=== PATIENT | male | born 1975 | race Caucasian/White ===

== ENCOUNTER 2020-03-13 22:10 | Inpatient (IN) ==
[2020-03-14] MEDS ORDERED: PROVENTIL NEB TX 0.083% 2.5MG/ 3ML NEB ONE (00:07)
[2020-03-14] MEDS ORDERED: DECADRON INJ PRESERVATIVE-FREE IVP ONE (00:07)
[2020-03-14] MEDS ORDERED: ZITHROMAX INJ 500 MG VIAL 500 MG in D5W 250 ML IV 250 ML IV SCH (00:08)
[2020-03-14] MEDS ORDERED: MOTRIN TAB 800 MG PO STA (00:09)
[2020-03-14] MEDS ORDERED: NS 1000 ML 1,000 ML IV ONE (00:09)
[2020-03-14] MEDS ORDERED: ZITHROMAX INJ 500 MG VIAL IV ONE (00:16)
[2020-03-14] MEDS ORDERED: NS 1000 ML 1,000 ML ONE (00:16)
[2020-03-14] MEDS ORDERED: DECADRON INJ ONE (00:16)
[2020-03-14] MEDS ORDERED: NS 250 ML IV 250 ML IV ONE (00:16)
[2020-03-14] MEDS ORDERED: PROVENTIL NEB TX 0.083% 2.5MG/ 3ML ONE (00:19)
[2020-03-14] MEDS ORDERED: MOTRIN TAB 800 MG PO ONE (00:20)
[2020-03-14] MEDS ORDERED: NS 100 ML IV 100 ML IV ONE (00:21)
--- NOTE | 2020-03-14 00:25 | DR.GENAD ---
HPI Time Seen Time Seen by Provider: 03/14/20 00:00 PCP Primary Care Physician: GIULIANO HPI Comment HPI Comment: Patient presents with worsening sob. Dx with COVID a few days ago and notes that his breathing is worse. patient is unable to complete full sentences without pausing. Complaint/Symptoms Chief Complaint:: PATIENT TESTED POSITIVE FOR COVID MONDAY AND HAS PROGRESSIVELY BECAME WORSE. PATIENT STARTED RUNNING A FEVER OF 101.1 THIS EVENING. PATIENT HAS BECAME VERY SHORT OF BREATH TODAY AND CANNOT TAKE A DEEP BREATH IN OR OUT. Self Treatment fo Chief Complaint: TOOK ANTIBIOTICS, ZPAK AND ALBUTERAL INHAULER AT HOME PRIOR TO COMING. Source History Provided: Patient Mode of Arrival Mode of Arrival: Ambulatory Timing Onset of Chief Complaint: 03/05/20 PMH PMH Past Medical History: Yes Past Medical History: Arthritis, Depression, GERD, Headaches, Hypertension and Sleep Apnea Past Medical History Comment: GASTRITIS, HIATAL HERNIA Past Surgical History: Yes Surgical History: Cholecystectomy Past Surgical History Comment: BACK SURGERY, SHOULDER SURGERY Family History History of Family Medical Conditions: Yes Family Medical History: Diabetes Mellitus, Cancer, [place], Coronary Artery Disease and Hypertension Social History Does patient currently use any type of tobacco product: Yes (DIP) Have you used tobacco products in the last 12 months: No Type of Tobacco Use: Smokeless How many years tobacco product used: 25 Does any household member use tobacco: No Alcohol Use: None Do you use any recreational Drugs:: No Lives With: Spouse Lives Where: Home Infectious screening In the last 2 months have you had wt loss of >10#?: NO Have you had fever, night sweats or hemotysis?: No Have you traveled outside the country in the last 6 months?: No Isolation: Standard ROS Review of Systems Constitutional: See HPI Respiratoy: Non-Productive Cough Cardiovascular: Chest Pain PE Vital Signs Vitals: Temperature 100.3 F Pulse Rate 85 Respiratory Rate 20 Blood Pressure 120/66 O2 Sat by Pulse Oximetry 95 General Limitations: No Limitations General Appearance: Alert and In Distress Head Head Exam: Normal Inspection, Atraumatic and Normocephalic Eyes Eye exam: Normal Appearance and EOMI ENT ENT Exam: Normal Exam Neck Neck Exam: Normal Inspection and Trachea Midline Chest Chest Inspection: Normal Inspection and Symmetric Chest Wall Rise Respiratory Respiratory Exam: Respiratory Distress Respiratory Exam: Bilateral: Rhonchi Cardiovascular Cardiovascular Exam: Regular Rate, Normal Rhythm and Normal Heart Sounds Abdominal Exam Abdominal Exam: Normal Inspection, Normal Bowel Sounds and Soft COURSE Treatment Treatment: Patient with unremarkable ED course. Notes some improvement. Sleeping at time of reassessment, I notices O2 sat 88% on room air. ROR Labs Reviewed Laboratory Results Reviewed?: Yes Result Diagrams: 03/14/20 00:21 03/14/20 00:21 Laboratory: WBC 3.9 X10^3/uL (3.6-10.0) 03/14/20 00: RBC 5.16 X10^6/uL (4.7-6.0) 03/14/20 00:21 Hgb 15.7 g/dL (13.5-18.0) 03/14/20 00: Hct 46.4 % (42.0-54.0) 03/14/20 00: MCV 89.9 fL (80.0-100.0) 03/14/20 00: MCH 30.4 pg (27.0-34.0) 03/14/20: MCHC 33.8 g/dL (33.0-35.0) 03/14/20 00: RDW 13.0 % (11.6-16.5) 03/14/20 00: Plt Count 128 X10^3/uL (150.0-450.0) L 03/14/20: Plt Count Comment Decreased (ADEQUATE) 03/14/20 00: MPV 9.6 fL (7.4-11.0) 03/14/20 00: Neut % (Auto) 74.1 % (42.0-75.0) 03/14/20 00: Lymph % (Auto) 14.1 % (21.0-51.0) L 03/14/20 00: [place] % (Auto) 11.3 % (0.0-13.0) 03/14/20: Eos % (Auto) 0.3 % (0.9-2.9) L 03/14/20 00: Baso % (Auto) 0.2 % (0.2-1.0) 03/14/20 00: Neut # (Auto) 2.9 x10^3/uL (2.2-4.8) 03/14/20 00:21 Lymph # (Auto) 0.5 X10^3/uL (1.3-2.9) L 03/14/20 00:21 [place] # (Auto) 0.4 x10^3/uL (0.3-0.8) 03/14/20 00:21 Eos # (Auto) 0.0 x10^3/uL (0.0-0.2) 03/14/20 00:21 Baso # (Auto) 0.0 X10^3/uL (0.0-0.1) 03/14/20 00:21 Absolute Nucleated RBC 0.2 /100WBC 03/14/20 00: Total Counted 100 03/14/20 00: Neutrophils % (Manual) 74 % (39-76) 03/14/20 00: Band Neutrophils % 5 % (0-10) 03/14/20 00:21 Lymphocytes % (Manual) 12 % (13-43) L 03/14/20 00: Monocytes % (Manual) 9 % (4-9) 03/14/20 00: Plt Morphology Comment Normal (NORMAL) 03/14/20 00: RBC Morphology Normal (NORMAL) 03/14/20 00: PT 12.1 SECONDS (11.8-14.3) 03/14/20 00:21 INR Target Range - 03/14/20 00 INR 0.92 (0.8-1.3) 03/14/20 00: APTT 30.7 SECONDS (22.9-36.5) 03/14/20 00: PTT Comment - 03/14/20 00: D-Dimer 0.56 ug/ml (0.0-0.57) 03/14/20 00:21 Sodium 136 mmol/L (136-145) 03/14/20 00:21 Corrected Sodium TNP 03/14/20 00:21 Potassium 3.5 mmol/L (3.5-5.1) 03/14/20 00: Chloride 99 mmol/L (98-107) 03/14/20 00: Carbon Dioxide 27.5 mmol/L (21-32) 03/14/20 00:21 BUN 10 mg/dL (7-18) 03/14/20 00:21 Creatinine 1.05 mg/dL (0.70-1.30) 03/14/20 00:21 Est GFR (MDRD) Af Amer > 60 (>60) 03/14/20 00:21 Est GFR (MDRD) Non-Af > 60 (>60) 03/14/20 00:21 Glucose 78 mg/dL (65-99) 03/14/20 00:21 Calcium 8.5 mg/dL (8.5-10.1) 03/14/20 00:21 Corrected Calcium 9.1 mg/dL (8.5-10.1) 03/14/20 00:21 Ferritin 152 ng/mL (26-388) 03/14/20 00:21 Total Bilirubin 0.30 mg/dL (0.2-1.0) 03/14/20 00:21 AST 50 Units/L (15-37) H 03/14/20 00:21 ALT 87 Units/L (12-78) H 03/14/20 00:21 Alkaline Phosphatase 70 Units/L (46-116) 03/14/20 00:21 C-Reactive Protein 13.90 mg/L (0-3.0) H 03/14/20 00:21 Total Protein 6.7 g/dL (6.4-8.2) 03/14/20 00:21 Albumin 3.2 g/dL (3.4-5.0) L 03/14/20 00:21 Globulin 3.5 g/dL (2.5-4.5) 03/14/20 00:21 Albumin/Globulin Ratio 0.9 Ratio (1.1-2.1) L 03/14/20 00:21 Influenza Type A (PCR) Negative (NEGATIVE) 03/14/20 01:38 Influenza Type B (PCR) Negative (NEGATIVE) 03/14/20 01:38 SARS CoV-2 RNA Rapid TRUNG Positive (NEGATIVE) A 03/14/20 01:38 Opioid Opioid Risk Tool Total: 0 Total Score Risk Category: Low Risk Copyright: Tyree MULLER predicting aberrant behaviors Diagnosis Discharge Problem: Pneumonia due to 2019 novel coronavirus
[2020-03-14 00:49] LABS: BASOPHILS % (AUTO) 0.2 % (0.2-1.0); EOSINOPHILS % (AUTO) 0.3 % (0.9-2.9); HEMATOCRIT 46.4 % (42.0-54.0); HEMOGLOBIN 15.7 g/dL (13.5-18.0); LYMPHOCYTES # (AUTO) 0.5 X10^3/uL (1.3-2.9); LYMPHOCYTES % (AUTO) 14.1 % (21.0-51.0); MEAN CORPUSCULAR HEMOGLOBIN 30.4 pg (27.0-34.0); MEAN CORPUSCULAR HGB CONC 33.8 g/dL (33.0-35.0); MEAN CORPUSCULAR VOLUME 89.9 fL (80.0-100.0); MEAN PLATELET VOLUME 9.6 fL (7.4-11.0); MONOCYTES # (AUTO) 0.4 x10^3/uL (0.3-0.8); MONOCYTES % (AUTO) 11.3 % (0.0-13.0); NEUTROPHILS # (AUTO) 2.9 x10^3/uL (2.2-4.8); NEUTROPHILS % (AUTO) 74.1 % (42.0-75.0); PLATELET COUNT 128 X10^3/uL (150.0-450.0); RED BLOOD COUNT 5.16 X10^6/uL (4.7-6.0); WHITE BLOOD COUNT 3.9 X10^3/uL (3.6-10.0)
[2020-03-14 00:54] LABS: ALANINE AMINOTRANSFERASE 87 Units/L (12-78); ALBUMIN 3.2 g/dL (3.4-5.0); ALKALINE PHOSPHATASE 70 Units/L (46-116); ASPARTATE AMINO TRANSFERASE 50 Units/L (15-37); BLOOD UREA NITROGEN 10 mg/dL (7-18); CALCIUM 8.5 mg/dL (8.5-10.1); CARBON DIOXIDE 27.5 mmol/L (21-32); CHLORIDE 99 mmol/L (98-107); COR CA(FOR HYPOALB) 9.1 mg/dL (8.5-10.1); CREATININE 1.05 mg/dL (0.70-1.30); SODIUM 136 mmol/L (136-145); TOTAL PROTEIN 6.7 g/dL (6.4-8.2); eGFR NON BLACK RACES > 60 (>60)
[2020-03-14 01:14] LABS: BAND NEUTROPHILS % 5 % (0-10); PLATELET MORPHOLOGY COMMENT NORMAL (NORMAL)
--- NOTE | 2020-03-14 01:53 | CT ---
HISTORYCOVID-19, HYPOXIASTUDYCTA CHESTCOMPARISONNoneTECHNIQUEMultiple axial images of the chest were obtained from the thoracic inlet to the upper abdomen after the administration of IV contrast. 3D reconstructions utilizing axial MIPS imaging was performed and reviewed. Dose reduction techniques including Automated Exposure Control (AEC) and adjustment of mA and kV were utilized.FINDINGSPulmonary arteries: There is no central filling defects of the pulmonary arterial system to suggest acute pulmonary emboli. Limited assessment of segmental and subsegmental pulmonary arteries due to motion degradation.Mediastinum: Mild mediastinal and hilar adenopathy. Heart size is within normal limits. No paricardial effusion The thoracic aorta is normal in its contour without evidence for aneurysmal dilatation.Lungs: Patchy peripheral and upper lobe predominant ground-glass opacities throughout. No pleural effusion or pneumothorax. The central airway is grossly patent.Chest wall: No axillary adenopathy.Bones: No aggressive osseus lesion or acute fracture.Upper abdomen: The visualized portions of the upper abdomen are grossly unremarkable.Status post cholecystectomy.IMPRESSIONNo evidence of acute pulmonary emboli.Limited assessment of segmental and subsegmental pulmonary arteries due to motion degradation.Patchy peripheral and upper lobe predominant ground-glass opacities throughout the lung bush, concerning for COVID-19 pneumonia.Mild mediastinal and hilar adenopathy, likely reactive.Status post cholecystectomy.Electronically signed by: Melany Hirsch (Mar 14, 2020 01:51:22)
[2020-03-14 04:11] LABS: BASOPHILS % (AUTO) 0.2 % (0.2-1.0); EOSINOPHILS % (AUTO) 0.1 % (0.9-2.9); HEMOGLOBIN 15.1 g/dL (13.5-18.0); LYMPHOCYTES # (AUTO) 0.4 X10^3/uL (1.3-2.9); LYMPHOCYTES % (AUTO) 8.9 % (21.0-51.0); MEAN CORPUSCULAR HEMOGLOBIN 30.4 pg (27.0-34.0); MEAN CORPUSCULAR HGB CONC 33.6 g/dL (33.0-35.0); MEAN CORPUSCULAR VOLUME 90.6 fL (80.0-100.0); MEAN PLATELET VOLUME 9.5 fL (7.4-11.0); MONOCYTES # (AUTO) 0.2 x10^3/uL (0.3-0.8); MONOCYTES % (AUTO) 4.9 % (0.0-13.0); NEUTROPHILS # (AUTO) 3.5 x10^3/uL (2.2-4.8); NEUTROPHILS % (AUTO) 85.9 % (42.0-75.0); PLATELET COUNT 118 X10^3/uL (150.0-450.0); RED BLOOD COUNT 4.96 X10^6/uL (4.7-6.0); RED CELL DISTRIBUTION WIDTH 12.9 % (11.6-16.5); WHITE BLOOD COUNT 4.1 X10^3/uL (3.6-10.0)
[2020-03-14 04:23] LABS: ALANINE AMINOTRANSFERASE 83 Units/L (12-78); ALBUMIN 3.1 g/dL (3.4-5.0); ALKALINE PHOSPHATASE 68 Units/L (46-116); ASPARTATE AMINO TRANSFERASE 35 Units/L (15-37); BLOOD UREA NITROGEN 10 mg/dL (7-18); CARBON DIOXIDE 26.7 mmol/L (21-32); CHLORIDE 102 mmol/L (98-107); COR CA(FOR HYPOALB) 8.7 mg/dL (8.5-10.1); COR NA(FOR HYPERGLY) 136 mmol/L (136-145); CREATININE 1.01 mg/dL (0.70-1.30); SODIUM 136 mmol/L (136-145); TOTAL PROTEIN 6.4 g/dL (6.4-8.2); TROPONIN I < 0.02 ng/mL (0-1.5); eGFR NON BLACK RACES > 60 (>60)
[2020-03-14] MEDS: NS 1000 ML 1,000 ML IV SCH (06:26)
[2020-03-14] MEDS ORDERED: FLEXERIL TAB 10 MG PO PRN (08:55)
[2020-03-14] MEDS ORDERED: ATIVAN TAB 1 MG PO PRN ×2 (08:55→10:32)
[2020-03-14] MEDS ORDERED: VITAMIN A PO SCH (09:00)
[2020-03-14] MEDS ORDERED: PREVACID PO SCH (09:00)
[2020-03-14] MEDS ORDERED: LOVENOX INJ 30 MG SYR SC SCH (09:00)
[2020-03-14] MEDS ORDERED: VITAMIN D (1.25MG) PO SCH (09:00)
[2020-03-14] MEDS: PULMICORT NEB TX 0.5 MG NEB SCH ×2 (09:25→21:00)
--- NOTE | 2020-03-14 10:37 | DR.H&P ---
H&P - History & Physical for Day of: H&P Date: 03/14/20 - Chief Complaint Chief Complaint: SOB, COVID 19 - History of Present Illness History of Present Illness: PATIENT TESTED POSITIVE FOR COVID MONDAY AND HAS PROGRESSIVELY BECAME WORSE. PATIENT STARTED RUNNING A FEVER OF 101.1 THIS EVENING. PATIENT HAS BECAME VERY SHORT OF BREATH TODAY AND CANNOT TAKE A DEEP BREATH IN OR OUT. PT HAD CTA IN ER REVEALING PNEUMONIA. PT ADMITTED FOR TREATME NT OF ACUTE RESP DISTRESS DUE TO COVID 19 PNEUMONIA - Past Medical History Past Medical History: Hypertension, Depression, GERD, Arthritis, Headaches, Sleep Apnea - Past Surgical History Surgical History: Tonsillectomy - Family History Family Medical History: Diabetes Mellitus, Cancer, Heart Failure - Social History Does patient currently use any type of tobacco product: Yes (DIP) Have you used tobacco products in the last 12 months: No Type of Tobacco Use: Smokeless How many years tobacco product used: 25 Does any household member use tobacco: No Alcohol Use: Occasionally Drug Use: None - Medications Home Medications: No Known Drug Allergies Allergy (Verified 03/14/20 03:49) CONTINUE taking the following medications cyanocobalamin (vitamin B-12) 1,000 mcg IM Q2M 03/14/20 [History] cyclobenzaprine 10 mg PO TID PRN 03/14/20 [History] desvenlafaxine succinate 100 mg PO DAILY 03/14/20 [History] dexlansoprazole [Dexilant] 60 mg PO DAILY 03/14/20 [History] lorazepam 1 mg PO BID PRN 03/14/20 [History] meloxicam 15 mg PO DAILY 03/14/20 [History] nebivolol [Bystolic] 10 mg PO DAILY 03/14/20 [History] phentermine 37.5 mg PO DAILY 03/14/20 [History] - Review of Systems Constitutional: Fever, Chills, Weakness Eyes: No Symptoms Reported ENT: No Symptoms Reported Respiratory: SOB with Excertion, Pleuritic Pain Cardiovascular: Palpitations Gastrointestinal: Nausea Genitourinary: No Symptoms Reported Skin: No Symptoms Reported Neurological: Weakness - Physical Exam Vital Signs: Temperature 97.7 F Pulse Rate [Apical] 72 Pulse Rate 79 Respiratory Rate 22 Blood Pressure [Left Arm] 117/73 Blood Pressure 108/52 O2 Sat by Pulse Oximetry 96 Oriented: Normal Eyes: Normal Ear: Normal Nose: Normal Throat: Normal Respiratory: Diminished Throughout Cardiovascular: Normal : Normal Auscultation: Bowel Sounds: Normal Palpation: Normal Tenderness: Normal Skin: Normal Musculoskeletal: Normal Psychiatric: Anxiety Affect: Anxious Speech Pattern: Clear, Appropriate - Assessment/Plan (1) Pneumonia due to 2019 novel coronavirus Status: Acute Plan: ADMIT, RESP THERAPY, SUPPLEMENTAL O2. BC AND SPUTUM ON ADMISSION. IV ATBX THERAPY, IV SOLU MEDROL PPI THERAPY. STRICT I&OS, REMDESIVIR, AM ABG AND CXR. AM LABS, VERIFY AND RESUME HOME ANTIHYPERTENSIVE MEDICATION (2) Hypertension Status: Acute - Allergies Allergies/Adverse Reactions: Allergies Allergy/AdvReac Type Severity Reaction Status Date / Time No Known Drug Allergies Allergy Verified 03/14/20 03:49
[2020-03-14] MEDS: REMDESIVIR 200 MG in NS 250 ML IV 250 ML IV SCH (10:41)
[2020-03-14] MEDS: ASCORBIC ACID INJ MULTI-DOSE VIAL 1,500 MG in NS 100 ML IV 100 ML IV SCH ×3 (10:42→20:22)
[2020-03-14] MEDS: ZINC SULFATE PO SCH ×2 (10:42→20:24)
[2020-03-14] MEDS: ZEBETA TAB 5 MG PO SCH (10:44)
[2020-03-14] MEDS: SOLU-Medrol 40 MG VIAL IVP SCH ×3 (10:45→21:08)
[2020-03-14] MEDS: TRICOR TAB 160 MG PO SCH (10:46)
[2020-03-14] MEDS: PROTONIX INJ 40 MG VIAL IVP SCH ×2 (10:46→20:23)
[2020-03-14] MEDS: PEPCID 20 MG IV PREMIX* 20 MG/50 ML BAG IV SCH (10:46)
[2020-03-14] MEDS: PATIENT'S HOME MEDICATION PO SCH (11:08)
[2020-03-14] MEDS: NEBIVOLOL 10 MG PO SCH (11:08)
[2020-03-14 11:17] LABS: ABG ALLEN TEST POS; ABG BASE EXCESS 4.2 mmol/L (-2.0-2.0); ABG HCO3 28.4 mmol/L (22-26)
[2020-03-14] MEDS: DUONEB 0.5 MG/3 MG (3 mL) NEB SCH ×2 (12:10→21:00)
[2020-03-14] MEDS: LOVENOX INJ 40 MG SYR SC SCH ×2 (12:27→20:22)
[2020-03-14] MEDS ORDERED: DUONEB 0.5 MG/3 MG (3 mL) NEB ONE (12:29)
[2020-03-14] MEDS ORDERED: ZOFRAN INJ 4 MG VIAL IVP PRN (20:47)
[2020-03-15] MEDS ORDERED: REMDESIVIR IV ONE (02:24)
[2020-03-15] MEDS ORDERED: NS 250 ML IV 250 ML IV ONE (02:25)
[2020-03-15] MEDS: ASCORBIC ACID INJ MULTI-DOSE VIAL 1,500 MG in NS 100 ML IV 100 ML IV SCH ×4 (02:35→20:32)
[2020-03-15] MEDS: ZITHROMAX INJ 500 MG VIAL 500 MG in D5W 250 ML IV 250 ML IV SCH (03:18)
[2020-03-15] MEDS: REMDESIVIR 200 MG in NS 250 ML IV 250 ML IV SCH (05:00)
[2020-03-15] MEDS: NS 1000 ML 1,000 ML IV SCH (05:20)
[2020-03-15] MEDS: SOLU-Medrol 40 MG VIAL IVP SCH ×3 (05:20→21:54)
[2020-03-15 05:37] LABS: BASOPHILS % (AUTO) 0.1 % (0.2-1.0); HEMATOCRIT 42.8 % (42.0-54.0); HEMOGLOBIN 14.6 g/dL (13.5-18.0); LYMPHOCYTES # (AUTO) 0.4 X10^3/uL (1.3-2.9); LYMPHOCYTES % (AUTO) 9.2 % (21.0-51.0); MEAN CORPUSCULAR HEMOGLOBIN 30.6 pg (27.0-34.0); MEAN CORPUSCULAR HGB CONC 34.1 g/dL (33.0-35.0); MEAN CORPUSCULAR VOLUME 89.8 fL (80.0-100.0); MEAN PLATELET VOLUME 9.3 fL (7.4-11.0); MONOCYTES # (AUTO) 0.2 x10^3/uL (0.3-0.8); MONOCYTES % (AUTO) 5.6 % (0.0-13.0); NEUTROPHILS # (AUTO) 3.7 x10^3/uL (2.2-4.8); NEUTROPHILS % (AUTO) 85.1 % (42.0-75.0); PLATELET COUNT 123 X10^3/uL (150.0-450.0); RED BLOOD COUNT 4.76 X10^6/uL (4.7-6.0); RED CELL DISTRIBUTION WIDTH 12.8 % (11.6-16.5); WHITE BLOOD COUNT 4.3 X10^3/uL (3.6-10.0)
[2020-03-15 05:55] LABS: ALANINE AMINOTRANSFERASE 74 Units/L (12-78); ALBUMIN 2.8 g/dL (3.4-5.0); ALKALINE PHOSPHATASE 65 Units/L (46-116); ASPARTATE AMINO TRANSFERASE 32 Units/L (15-37); BLOOD UREA NITROGEN 13 mg/dL (7-18); CALCIUM 8.6 mg/dL (8.5-10.1); CHLORIDE 102 mmol/L (98-107); COR CA(FOR HYPOALB) 9.6 mg/dL (8.5-10.1); COR NA(FOR HYPERGLY) 139 mmol/L (136-145); CREATININE 1.14 mg/dL (0.70-1.30); SODIUM 138 mmol/L (136-145); TOTAL PROTEIN 6.2 g/dL (6.4-8.2); eGFR NON BLACK RACES > 60 (>60)
[2020-03-15] MEDS: DUONEB 0.5 MG/3 MG (3 mL) NEB SCH ×3 (05:56→20:45)
[2020-03-15] MEDS ORDERED: DECADRON TAB PO SCH (09:00)
[2020-03-15] MEDS: LOVENOX INJ 40 MG SYR SC SCH ×2 (09:28→20:41)
[2020-03-15] MEDS: PEPCID 20 MG IV PREMIX* 20 MG/50 ML BAG IV SCH (09:30)
[2020-03-15] MEDS: TRICOR TAB 160 MG PO SCH (09:31)
[2020-03-15] MEDS: PROTONIX INJ 40 MG VIAL IVP SCH ×2 (09:31→20:27)
[2020-03-15] MEDS: ZEBETA TAB 5 MG PO SCH (09:32)
[2020-03-15] MEDS: ZINC SULFATE PO SCH ×2 (09:32→20:27)
[2020-03-15] MEDS: PULMICORT NEB TX 0.5 MG NEB SCH ×2 (09:35→20:45)
[2020-03-15] MEDS: NEBIVOLOL 10 MG PO SCH (10:16)
[2020-03-15] MEDS: PATIENT'S HOME MEDICATION PO SCH (10:16)
[2020-03-15 10:57] LABS: ABG ALLEN TEST POS; ABG BASE EXCESS 3.7 mmol/L (-2.0-2.0); ABG HCO3 27.7 mmol/L (22-26)
[2020-03-15] MEDS: ZOSYN VIAL 4.5 GRAMS 4.5 G in NS 100 ML IV + SPIKE MINIBAG* 100 ML IV SCH ×3 (11:56→21:54)
[2020-03-15] MEDS: ROBITUSSIN DM PO SCH ×4 (11:56→20:28)
[2020-03-15] MEDS: REMDESIVIR 100 MG in NS 250 ML IV 250 ML IV SCH (12:03)
--- NOTE | 2020-03-15 12:19 | RAD ---
HISTORYcovid pneumoniaSTUDYCHEST, [address] examination of the chest dated 03/14/2020.FINDINGSOverlying artifact. Limited inspiration. Vague and linear parenchymal opacities bilaterally, left slightly greater than right. Left basilar opacity appears new compared to previous CT. Costophrenic angles sharp. Heart size probably within normal limits. Bony structures unremarkable. No tracheal deviation.IMPRESSIONVague and linear parenchymal opacities bilaterally, left greater than right. Left basilar opacity appears new compared to CT examination performed preceding day.Electronically signed by: Mega West (Mar 15, 2020 12:18:08)
[2020-03-16] MEDS: ZITHROMAX INJ 500 MG VIAL 500 MG in D5W 250 ML IV 250 ML IV SCH ×3 (00:37→13:35)
[2020-03-16] MEDS: ASCORBIC ACID INJ MULTI-DOSE VIAL 1,500 MG in NS 100 ML IV 100 ML IV SCH ×4 (03:37→20:48)
[2020-03-16] MEDS: NS 1000 ML 1,000 ML IV SCH (04:53)
[2020-03-16] MEDS: ZOSYN VIAL 4.5 GRAMS 4.5 G in NS 100 ML IV + SPIKE MINIBAG* 100 ML IV SCH ×3 (05:29→22:02)
[2020-03-16] MEDS: SOLU-Medrol 40 MG VIAL IVP SCH ×3 (05:29→21:02)
[2020-03-16 05:30] LABS: ABG BASE EXCESS 6.4 mmol/L (-2.0-2.0)
[2020-03-16 05:31] LABS: ABG ALLEN TEST POS; ABG HCO3 31.3 mmol/L (22-26)
[2020-03-16] MEDS: DUONEB 0.5 MG/3 MG (3 mL) NEB SCH ×3 (06:36→21:20)
[2020-03-16 06:47] LABS: ALANINE AMINOTRANSFERASE 122 Units/L (12-78); ALKALINE PHOSPHATASE 69 Units/L (46-116); ASPARTATE AMINO TRANSFERASE 61 Units/L (15-37); BLOOD UREA NITROGEN 18 mg/dL (7-18); CALCIUM 8.8 mg/dL (8.5-10.1); CARBON DIOXIDE 28.4 mmol/L (21-32); CHLORIDE 103 mmol/L (98-107); COR CA(FOR HYPOALB) 9.6 mg/dL (8.5-10.1); COR NA(FOR HYPERGLY) 143 mmol/L (136-145); CREATININE 1.11 mg/dL (0.70-1.30); SODIUM 142 mmol/L (136-145); TOTAL PROTEIN 6.4 g/dL (6.4-8.2); eGFR NON BLACK RACES > 60 (>60)
[2020-03-16 06:55] LABS: BASOPHILS % (AUTO) 0.1 % (0.2-1.0); HEMATOCRIT 44.8 % (42.0-54.0); HEMOGLOBIN 14.9 g/dL (13.5-18.0); LYMPHOCYTES # (AUTO) 0.6 X10^3/uL (1.3-2.9); MEAN CORPUSCULAR HEMOGLOBIN 30.3 pg (27.0-34.0); MEAN CORPUSCULAR HGB CONC 33.3 g/dL (33.0-35.0); MEAN PLATELET VOLUME 9.4 fL (7.4-11.0); MONOCYTES # (AUTO) 0.3 x10^3/uL (0.3-0.8); MONOCYTES % (AUTO) 4.5 % (0.0-13.0); NEUTROPHILS # (AUTO) 5.1 x10^3/uL (2.2-4.8); NEUTROPHILS % (AUTO) 85.4 % (42.0-75.0); PLATELET COUNT 131 X10^3/uL (150.0-450.0); RED BLOOD COUNT 4.92 X10^6/uL (4.7-6.0); RED CELL DISTRIBUTION WIDTH 12.9 % (11.6-16.5)
--- NOTE | 2020-03-16 08:24 | RAD ---
HISTORYCOVID, SOBSTUDYCHEST, 1 [id number]/20/2020FINDINGSThe trachea is midline. The cardiac silhouette is stable. Slight worsening of bilateral airspace opacities. The bony thorax is unremarkable.IMPRESSIONSlight worsening of bilateral airspace opacities concerning for pneumonia. Recommend follow-up to resolution.Electronically signed by: IVY IYER (Mar 16, 2020 08:23:00)
[2020-03-16] MEDS: LOVENOX INJ 40 MG SYR SC SCH ×2 (08:51→21:01)
[2020-03-16] MEDS: ZINC SULFATE PO SCH ×2 (08:53→20:51)
[2020-03-16] MEDS: ZEBETA TAB 5 MG PO SCH (08:54)
[2020-03-16] MEDS: ROBITUSSIN DM PO SCH ×4 (08:56→20:50)
[2020-03-16] MEDS: VITAMIN A PO SCH (08:56)
[2020-03-16] MEDS: TRICOR TAB 160 MG PO SCH (08:56)
[2020-03-16] MEDS: PROTONIX INJ 40 MG VIAL IVP SCH ×2 (08:58→20:50)
[2020-03-16] MEDS: PULMICORT NEB TX 0.5 MG NEB SCH ×2 (09:50→21:20)
[2020-03-16] MEDS: NEBIVOLOL 10 MG PO SCH (13:34)
[2020-03-16] MEDS: PATIENT'S HOME MEDICATION PO SCH (13:34)
[2020-03-16] MEDS: PEPCID 20 MG IV PREMIX* 20 MG/50 ML BAG IV SCH (13:35)
[2020-03-16] MEDS: REMDESIVIR 100 MG in NS 250 ML IV 250 ML IV SCH (13:35)
[2020-03-16] MEDS: VITAMIN D3 125 mcg (5,000 UNITS) PO SCH (13:36)
[2020-03-16] MEDS: TUSSIONEX PENNKINETIC SUSP PO SCH (20:51)
[2020-03-17] MEDS: ASCORBIC ACID INJ MULTI-DOSE VIAL 1,500 MG in NS 100 ML IV 100 ML IV SCH ×2 (03:21→11:49)
[2020-03-17] MEDS: SOLU-Medrol 40 MG VIAL IVP SCH (05:15)
[2020-03-17] MEDS: NS 1000 ML 1,000 ML IV SCH (05:15)
[2020-03-17] MEDS: ZOSYN VIAL 4.5 GRAMS 4.5 G in NS 100 ML IV + SPIKE MINIBAG* 100 ML IV SCH (05:15)
[2020-03-17] MEDS: DUONEB 0.5 MG/3 MG (3 mL) NEB SCH (05:20)
[2020-03-17 05:35] LABS: ABG BASE EXCESS 6.6 mmol/L (-2.0-2.0)
[2020-03-17 05:36] LABS: ABG ALLEN TEST POS; ABG HCO3 30.5 mmol/L (22-26)
--- NOTE | 2020-03-17 06:08 | RAD ---
HISTORYFollow-up COVID-19STUDYChest AP [id number]/21/2020FINDINGSThe heart is within normal limits in size. The teresa are normal. The lungs are mildly hypoinflated. Subtle bilateral perihilar infiltrates are unchanged. No pleural effusions are identified. Bony thorax is unremarkable.IMPRESSIONNo significant change in the subtle bilateral perihilar infiltrates being followedElectronically signed by: IVY IYER (Mar 17, 2020 06:07:11)
[2020-03-17 06:43] LABS: BASOPHILS % (AUTO) 0 % (0.2-1.0); EOSINOPHILS % (AUTO) 0.1 % (0.9-2.9); HEMATOCRIT 46.4 % (42.0-54.0); HEMOGLOBIN 15.5 g/dL (13.5-18.0); LYMPHOCYTES # (AUTO) 0.7 X10^3/uL (1.3-2.9); LYMPHOCYTES % (AUTO) 8.7 % (21.0-51.0); MEAN CORPUSCULAR HEMOGLOBIN 30.4 pg (27.0-34.0); MEAN CORPUSCULAR HGB CONC 33.3 g/dL (33.0-35.0); MEAN CORPUSCULAR VOLUME 91.1 fL (80.0-100.0); MEAN PLATELET VOLUME 9.8 fL (7.4-11.0); MONOCYTES # (AUTO) 0.3 x10^3/uL (0.3-0.8); MONOCYTES % (AUTO) 4.2 % (0.0-13.0); NEUTROPHILS # (AUTO) 6.8 x10^3/uL (2.2-4.8); PLATELET COUNT 168 X10^3/uL (150.0-450.0); RED BLOOD COUNT 5.09 X10^6/uL (4.7-6.0); WHITE BLOOD COUNT 7.9 X10^3/uL (3.6-10.0)
[2020-03-17 06:54] LABS: ALANINE AMINOTRANSFERASE 153 Units/L (12-78); ALKALINE PHOSPHATASE 70 Units/L (46-116); ASPARTATE AMINO TRANSFERASE 64 Units/L (15-37); BLOOD UREA NITROGEN 19 mg/dL (7-18); CALCIUM 8.5 mg/dL (8.5-10.1); CARBON DIOXIDE 27.9 mmol/L (21-32); CHLORIDE 101 mmol/L (98-107); COR CA(FOR HYPOALB) 9.3 mg/dL (8.5-10.1); COR NA(FOR HYPERGLY) 140 mmol/L (136-145); SODIUM 139 mmol/L (136-145); TOTAL PROTEIN 6.5 g/dL (6.4-8.2); eGFR NON BLACK RACES > 60 (>60)
[2020-03-17] MEDS: VITAMIN A PO SCH (09:00)
[2020-03-17] MEDS: NEBIVOLOL 10 MG PO SCH (09:00)
[2020-03-17 09:06] VITALS: BMI 31.0
[2020-03-17] MEDS: LOVENOX INJ 40 MG SYR SC SCH (09:11)
[2020-03-17] MEDS: PEPCID 20 MG IV PREMIX* 20 MG/50 ML BAG IV SCH (09:12)
[2020-03-17] MEDS: ROBITUSSIN DM PO SCH ×2 (09:12→13:29)
[2020-03-17] MEDS: TUSSIONEX PENNKINETIC SUSP PO SCH (09:13)
[2020-03-17] MEDS: PROTONIX INJ 40 MG VIAL IVP SCH (09:14)
[2020-03-17] MEDS: VITAMIN D3 125 mcg (5,000 UNITS) PO SCH (09:19)
[2020-03-17] MEDS: TRICOR TAB 160 MG PO SCH (09:20)
[2020-03-17] MEDS: ZEBETA TAB 5 MG PO SCH (09:21)
[2020-03-17] MEDS: ZINC SULFATE PO SCH (09:21)
[2020-03-17] MEDS ORDERED: REMDESIVIR 100 MG in NS 250 ML IV 250 ML IV ONE (09:43)
[2020-03-17 10:14] VITALS: BP 125/74
[2020-03-17] MEDS: PULMICORT NEB TX 0.5 MG NEB SCH (10:22)
[2020-03-17] MEDS: REMDESIVIR 100 MG in NS 250 ML IV 250 ML IV SCH (10:38)
[2020-03-17] MEDS: ZITHROMAX INJ 500 MG VIAL 500 MG in D5W 250 ML IV 250 ML IV SCH (10:43)
[2020-03-17] MEDS: PATIENT'S HOME MEDICATION PO SCH (11:50)
--- NOTE | 2020-03-17 13:42 | PCM.PROG ---
Progress Note - Progress Note for Day of Date of Exam: 03/16/20 - Subjective Subjective: IS BEING TREATED FOR PNEUMONIA DUE TO COVID-19 AND HYPOXIA. TODAY, HE IS ALERT AND ORIENTED, LYING IN BED ON MORNING ROUNDS. HE CONTINUES WITH COMPLAINTS OF COUGH, SHORTNESS OF BREATH, AND GENERALIZED WEAKNESS. HE IS CURRENTLY UTILIZING OXYGEN VIA NASAL CANNULA AT 2 LPM. HE USES THE BIPAP AT BEDTIME. HIS OXYGEN SATURATIONS HAVE BEEN 92-97% ON NASAL CANNULA. HE REPORTS SLIGHT IMPROVEMENT IN SYMPTOMS SINCE ADMISSION. ON EXAMINATION, HEART IS REGULAR IN RATE AND RHYTHM. BILATERAL LUNGS ARE NOTED WITH SCATTERED WHEEZING THROUGHOUT. ABDOMEN IS ROUND, SOFT, AND NON-TENDER WITH NORMAL BOWEL SOUNDS NOTED IN ALL QUADRANTS. HIS VITALS THIS MORNING ARE: 97.4-94-18-94%NC-132/70. LABS WERE OBTAINED. ABNORMAL LAB VALUES INCLUDE THE FOLLOWING: PLT COUNT 131, GLUCOSE 146, AST 61, ALT 122, CRP 5.70, ALBUMIN 3.0. AN ABG WAS REPEATED TO DAY AND REVEALED: PH 7.430, PC02 33.0, P02 81.0, HC03 21.9, 02 SAT 96, FI02 32.0. BLOOD CULTURES ARE PENDING. BLOOD CULTURES ARE PENDING. CHEST XRAY REVEALED: Slight worsening of bilateral airspace opacities concerning for pneumonia. HE IS CURRENTLY RECEIVING REMDESIVIR 100MG IV DAILY, NS AT 100 ML/HR, AZITHROMYCIN 500MG IV DAILY, SOLU-MEDROL 80MG IV TID, TUSSIONEX 5ML PO Q12H, ROBITUSSIN DM 10 ML PO QID, DUONEBS TID, PULMICORT NEBS BID, LOVENOX 40MG SC BID, PEPCID 20MG IV BID, PROTONIX 40MG IV BID, ZINC 220MG PO BID, AND ASCORBIC ACID Q6H. HIS HOME MEDICATIONS WERE RESUMED. WE WILL CONTINUE WITH CURRENT PLAN OF CARE TODAY. OTHERWISE, WE WILL FOLLOW UP WITH AM LABS AND CONTINUE TO MONITOR. TIME SPENT ON CLINICAL ASSESSMENT, REVIEWING LABS AND IMAGING, DECISION MAKING, AND DOCUMENTATION GREATER THAN 45 MINUTES. - Past Medical Family Social History Past Med/Fam/Surg Hx: No changes since H&P Allergies: Allergies No Known Drug Allergies Allergy (Verified 03/14/20 03:49) - Review of Systems ROS: No change since H&P - Vital Signs and I&O's Vital Signs: Temperature 98.5 F Pulse Rate [Left Brachial] 88 Pulse Rate [Apical] 94 Pulse Rate 92 Respiratory Rate 20 Blood Pressure [Left Arm] 125/74 Blood Pressure 108/52 O2 Sat by Pulse Oximetry 92 Intake and Output: Intake & Output 03/15/20 03/16/20 03/17/20 03/18/20 11:59 11:59 11:59 11:59 Intake Total 2435 / 2435 2742 / 2742 5377 / 5377 Balance 2435 / 2435 2742 / 2742 5377 / 5377 - Physical Exam Oriented: Normal Eyes: Normal Ear: Normal Nose: Normal Throat: Normal Respiratory: Generalized, Diminished, Wheezes Cardiovascular: Normal : Normal Auscultation: Bowel Sounds: Normal Palpation: Normal Tenderness: Normal Skin: Normal Musculoskeletal: Normal Psychiatric: Anxiety Affect: Anxious Speech Pattern: Clear, Appropriate - Laboratory and Diagnostics Result Diagrams: 03/17/20 05:57 03/17/20 05:57 Labs: 03/14/20 00:25 Blood Blood Culture - Preliminary 03/14/20 00:21 Blood Blood Culture - Preliminary Laboratory WBC 7.9 X10^3/uL (3.6-10.0) 03/17/20 05:57 RBC 5.09 X10^6/uL (4.7-6.0) 03/17/20 05:57 Hgb 15.5 g/dL (13.5-18.0) 03/17/20 05:57 Hct 46.4 % (42.0-54.0) 03/17/20 05:57 MCV 91.1 fL (80.0-100.0) 03/17/20 05:57 MCH 30.4 pg (27.0-34.0) 03/17/20 05:57 MCHC 33.3 g/dL (33.0-35.0) 03/17/20 05:57 RDW 13.0 % (11.6-16.5) 03/17/20 05:57 Plt Count 168 X10^3/uL (150.0-450.0) 03/17/20 05:57 Plt Count Comment Decreased (ADEQUATE) 03/14/20 00:21 MPV 9.8 fL (7.4-11.0) 03/17/20 05:57 Neut % (Auto) 87.0 % (42.0-75.0) H 03/17/20 05:57 Lymph % (Auto) 8.7 % (21.0-51.0) L 03/17/20 05:57 [place] % (Auto) 4.2 % (0.0-13.0) 03/17/20 05:57 Eos % (Auto) 0.1 % (0.9-2.9) L 03/17/20 05:57 Baso % (Auto) 0 % (0.2-1.0) L 03/17/20 05:57 Neut # (Auto) 6.8 x10^3/uL (2.2-4.8) H 03/17/20 05:57 Lymph # (Auto) 0.7 X10^3/uL (1.3-2.9) L 03/17/20 05:57 [place] # (Auto) 0.3 x10^3/uL (0.3-0.8) 03/17/20 05:57 Eos # (Auto) 0.0 x10^3/uL (0.0-0.2) 03/17/20 05:57 Baso # (Auto) 0.0 X10^3/uL (0.0-0.1) 03/17/20 05:57 Absolute Nucleated RBC 0.1 /100WBC 03/17/20 05:57 Total Counted 100 03/14/20 00:21 Neutrophils % (Manual) 74 % (39-76) 03/14/20 00:21 Band Neutrophils % 5 % (0-10) 03/14/20 00:21 Lymphocytes % (Manual) 12 % (13-43) L 03/14/20 00:21 Monocytes % (Manual) 9 % (4-9) 03/14/20 00:21 Plt Morphology Comment Normal (NORMAL) 03/14/20 00:21 RBC Morphology Normal (NORMAL) 03/14/20 00:21 PT 12.1 SECONDS (11.8-14.3) 03/14/20 00:21 INR Target Range - 03/14/20 00:21 INR 0.92 (0.8-1.3) 03/14/20 00:21 APTT 30.7 SECONDS (22.9-36.5) 03/14/20 00:21 PTT Comment - 03/14/20 00:21 D-Dimer 0.56 ug/ml (0.0-0.57) 03/14/20 00:21 Sample Site Lr 03/17/20 05:30 ABG pH 7.490 (7.35-7.45) H 03/17/20 05:30 ABG pCO2 40.0 mmHg (35.0-45.0) 03/17/20 05:30 ABG pO2 91.0 mmHg (80.0-100.0) 03/17/20 05:30 ABG HCO3 30.5 mmol/L (22-26) H* 03/17/20 05:30 ABG O2 Saturation 98.0 % (90-100) 03/17/20 05:30 ABG Base Excess 6.6 mmol/L (-2.0-2.0) H 03/17/20 05:30 Elbert Test Pos 03/17/20 05:30 A-a Gradient 87.0 mmHg 03/17/20 05:30 FiO2 32.0 03/17/20 05:30 Blood Gas Comments Jose well ae 03/17/20 05:30 Sodium 139 mmol/L (136-145) 03/17/20 05:57 Corrected Sodium 140 mmol/L (136-145) 03/17/20 05:57 Potassium 3.7 mmol/L (3.5-5.1) 03/17/20 05:57 Chloride 101 mmol/L (98-107) 03/17/20 05:57 Carbon Dioxide 27.9 mmol/L (21-32) 03/17/20 05:57 BUN 19 mg/dL (7-18) H 03/17/20 05:57 Creatinine 1.10 mg/dL (0.70-1.30) 03/17/20 05:57 Est GFR (MDRD) Af Amer > 60 (>60) 03/17/20 05:57 Est GFR (MDRD) Non-Af > 60 (>60) 03/17/20 05:57 Glucose 141 mg/dL (65-99) H 03/17/20 05:57 Calcium 8.5 mg/dL (8.5-10.1) 03/17/20 05:57 Corrected Calcium 9.3 mg/dL (8.5-10.1) 03/17/20 05:57 Ferritin 154 ng/mL (26-388) 03/15/20 05:17 Total Bilirubin 0.30 mg/dL (0.2-1.0) 03/17/20 05:57 AST 64 Units/L (15-37) H 03/17/20 05:57 ALT 153 Units/L (12-78) H 03/17/20 05:57 Alkaline Phosphatase 70 Units/L (46-116) 03/17/20 05:57 Troponin I < 0.02 ng/mL (0-1.5) 03/14/20 04:00 C-Reactive Protein 2.60 mg/L (0-3.0) 03/17/20 05:57 Total Protein 6.5 g/dL (6.4-8.2) 03/17/20 05:57 Albumin 3.0 g/dL (3.4-5.0) L 03/17/20 05:57 Globulin 3.5 g/dL (2.5-4.5) 03/17/20 05:57 Albumin/Globulin Ratio 0.9 Ratio (1.1-2.1) L 03/17/20 05:57 Influenza Type A (PCR) Negative (NEGATIVE) 03/14/20 01:38 Influenza Type B (PCR) Negative (NEGATIVE) 03/14/20 01:38 SARS CoV-2 RNA Rapid TRUNG Positive (NEGATIVE) A 03/14/20 01:38 Blood Type A POSITIVE 03/14/20 09:07 - Plan (1) Pneumonia due to 2019 novel coronavirus Status: Acute Plan: RESP THERAPY, SUPPLEMENTAL O2. BC AND SPUTUM ON ADMISSION. IV ATBX THERAPY, IV SOLU MEDROL PPI THERAPY. STRICT I&OS, REMDESIVIR, AM ABG AND CXR. AM LABS, VERIFY AND RESUME HOME ANTIHYPERTENSIVE MEDICATION (2) Hypoxia Status: Acute
== END 2020-03-17 13:25 | disposition home or self-care (01) | DRG 177 ==
LOC: ER 22:19 → MED/SURG 03-14 03:45
PROVIDERS: ADMIT Internal Medicine; ATTEND Internal Medicine
DX: R06.02 Shortness of breath; K21.9 Gastro-esophageal reflux disease without esophagitis; R79.82 Elevated C-reactive protein (CRP); U07.1 COVID-19; J12.89 Other viral pneumonia; I10 Essential (primary) hypertension; R79.89 Other specified abnormal findings of blood chemistry; R53.1 Weakness